=== PATIENT | male | born 1985 | race Caucasian/White ===

== ENCOUNTER 2016-12-31 19:09 | Emergency (ER) | payer OTHER ==
[~2016-12-31] VITALS: Ht 175.3 cm; Wt 90.7 kg
[2016-12-31 20:07] VITALS: BP 138/97
== END 2016-12-31 20:08 | disposition home or self-care (01) ==
LOC: ER 19:09
DX: S90.31XA Contusion of right foot, initial encounter (principal); W22.8XXA Striking against or struck by other objects, initial encounter; Y93.39 Activity, other involving climbing, rappelling and jumping off; Y92.098 Other place in other non-institutional residence as the place of occurrence of the external cause; Y99.8 Other external cause status